=== PATIENT | female | born 1960 | race Caucasian/White ===

== ENCOUNTER 2021-11-06 16:11 | Emergency (ER) | payer BC ==
[2021-11-06 17:38] VITALS: BP 115/76; PULSE 68; RESP 16; TEMP 98
[2021-11-06] MEDS ORDERED: DIPH,PERTUS(ACELL)TETVAC-LF 0.5 ML VIAL IM ONE (18:28)
--- NOTE | 2021-11-06 19:37 | XR ---
EXAMINATION TYPE: XR knee complete RT DATE OF EXAM: 11/06/2021 COMPARISON: NONE HISTORY: Pain TECHNIQUE: 3 views FINDINGS: I see no fracture nor dislocation. Patellofemoral joint is intact. There is minor spurring on the anterior femur condyles. IMPRESSION: Mild spurring. No fracture seen. There is some patellofemoral osteoarthritis.
[2021-11-06] MEDS ORDERED: LIDOCAINE/EPINEPHR/TETRACAINE 5 ML BOTTLE TOPICAL ONE (19:50)
--- NOTE | 2021-11-06 20:45 | ED ---
General Adult HPI - General Chief complaint: Fall Stated complaint: Fall-Facial injury Time Seen by Provider: 11/06/21 19:12 Source: patient Mode of arrival: ambulatory Limitations: no limitations - History of Present Illness Initial comments: Patient is a 61-year-old female presenting with chief complaint of abrasion to the upper lip after a facial injury today. Patient was walking in the backyard when she tripped on a stone, she hit the front of her mouth on the ground. Patient denies any loss of consciousness or blood thinners. Patient does not remember when her last tetanus was. She denies any headache, neck pain, vision or hearing changes, nausea, vomiting, dizziness, numbness, tingling, weakness, chest pain, shortness of breath, palpitations. - Related Data Allergies Allergy/AdvReac Type Severity Reaction Status Date / Time amoxicillin Allergy Unknown Verified 11/06/21 17:39 azathioprine [From Imuran] Allergy Unknown Verified 11/06/21 17:39 sulfasalazine Allergy Unknown Verified 11/06/21 17:39 Review of Systems ROS Statement: Those systems with pertinent positive or pertinent negative responses have been documented in the HPI. ROS Other: All systems not noted in ROS Statement are negative. Past Medical History Past Medical History: Osteoarthritis (OA) Additional Past Medical History / Comment(s): arthritis osteoporosis sleep apnea History of Any Multi-Drug Resistant Organisms: None Reported Past Surgical History: Orthopedic Surgery, Tonsillectomy Past Psychological History: Depression Smoking Status: Former smoker Past Alcohol Use History: Daily Past Drug Use History: Marijuana General Exam Limitations: no limitations General appearance: alert, in no apparent distress Head exam: Present: atraumatic, normocephalic, normal inspection Eye exam: Present: normal appearance, PERRL, EOMI. Absent: scleral icterus, periorbital swelling, periorbital tenderness ENT exam: Present: other (Abrasion to upper lip) Respiratory exam: Present: normal lung sounds bilaterally. Absent: respiratory distress, wheezes, rales, rhonchi, stridor Cardiovascular Exam: Present: regular rate, normal rhythm, normal heart sounds. Absent: systolic murmur, diastolic murmur, rubs, gallop, clicks Neurological exam: Present: alert, oriented X3, CN II-XII intact Expanded Patient oriented to: Present: person, place, time Speech: Present: fluid speech Cranial nerves: EOM's Intact: Normal, Facial Sensation: Normal Sensory exam: Upper Extremity Light Touch: Normal, Lower Extremity Light Touch: Normal Motor strength exam: RUE: 5, LUE: 5, RLE: 5, LLE: 5 Eye Response: (4) open spontaneously Motor Response: (6) obeys commands Verbal Response: (5) oriented Karson Total: 15 Psychiatric exam: Present: normal affect, normal mood Skin exam: Present: warm, dry, normal color, abrasion (Upper lip). Absent: rash Course Vital Signs 11/06/21 17:32 Temperature 98 F Pulse Rate 68 Respiratory 16 Rate Blood Pressure 115/76 O2 Sat by Pulse 100 Oximetry Medical Decision Making - Medical Decision Making Patient is a 61-year-old female presenting with chief complaint of facial injury. Patient tripped and fell in the backyard causing her to have an abrasion to the upper lip. Patient denies any loss of consciousness or use of blood thinners. Patient does not remember when her last tetanus vaccination was. On examination there is no focal neurological deficit, GCS 15. Wound was irrigated and tetanus was updated. Abrasion is not able to be closed, I advised him on wound care and signs of infection. Follow-up with PCP. Report back to ER with any new or worsening symptoms. Discussed return parameters and answered all questions. Patient conveyed verbal understanding and agreed to the plan. I discussed this case in detail with my attending Dr. Cyr. Disposition Clinical Impression: Lip abrasion Disposition: HOME SELF-CARE Condition: Good Instructions (If sedation given, give patient instructions): Head Injury (ED), Abrasion (ED) Additional Instructions: Follow-up with PCP. Report back to ER with any new or worsening symptoms. Take Motrin and Tylenol as needed for pain control. You may apply Neosporin over the abrasion as needed. Is patient prescribed a controlled substance at d/c from ED?: No Referrals: Nonstaff,Physician [Primary Care Provider] - 1-2 days Time of Disposition: 20:45
== END 2021-11-06 21:23 | disposition home or self-care (01) ==
LOC: EC 16:11
DX: S00.511A Abrasion of lip, initial encounter (principal); M19.90 Unspecified osteoarthritis, unspecified site; Z87.891 Personal history of nicotine dependence; Z23 Encounter for immunization; Z88.0 Allergy status to penicillin; Z88.8 Allergy status to other drugs, medicaments and biological substances; Z88.2 Allergy status to sulfonamides; W01.198A Fall on same level from slipping, tripping and stumbling with subsequent striking against other object, initial encounter; Y93.01 Activity, walking, marching and hiking; Y92.096 Garden or yard of other non-institutional residence as the place of occurrence of the external cause
CPT/HCPCS: 90471; 90715; 99283